=== PATIENT | male | born 1980 | race Two or more races ===

== ENCOUNTER 2016-12-24 00:37 | Emergency (ER) | payer OTHER ==
[2016-12-24 02:22] VITALS: BP 134/85; PULSE 82; TEMP 98; BMI 21.2
[2016-12-24] MEDS ORDERED: KETOROLAC TROMETHAMINE 60 MG/2 ML VIAL IM ONE (03:20)
--- NOTE | 2016-12-24 03:20 | PDOC ---
History of Present Illness - General History Source: Patient Exam Limitations: No Limitations - History of Present Illness Initial Comments: CHIEF COMPLAINT: 36 y/o afebrile male with no significant PMH c/o left knee pain s/p fall. HISTORY OF PRESENT ILLNESS: The patient states he was walking tonight when his left knee locked and he fell. He then couldn't walk because he had a lot of pain in his left knee. Vital signs on arrival are within normal limits. REVIEW OF SYSTEMS: GENERAL/CONSTITUTIONAL: No fever/chills. No weakness. No weight change. HEAD, EYES, EARS, NOSE AND THROAT: No change in vision. No ear pain or discharge. No sore throat. MUSCULOSKELETAL: +left knee pain. No neck or back pain. SKIN: No rash or easy bruising. NEUROLOGIC: No headache, vertigo, loss of consciousness, or loss of sensation. PHYSICAL EXAM: VITAL_SIGNS: within normal limits GENERAL_APPEARANCE: alert, cooperative, mild obvious discomfort. MENTAL_STATUS: speech clear, oriented X 3, responds appropriately to questions. NEURO: motor intact and sensory intact in injured extremity. EXTREMITIES: good pulse in injured extremity. No swelling to affected knee. Pain with flexion and extension of left knee. TTP of both medial and lateral joint lines worse on medial side. SKIN: warm, dry, good color. <Maribel Allen - Last Filed: 12/24/16 06:30> <Nilesh Hardin - Last Filed: 12/24/16 07:00> - General Chief Complaint: Pain, Acute Stated Complaint: LEFT KNEE PAIN Time Seen by Provider: 12/24/16 02:50 Past History - Past Medical History Asthma: Yes HTN: Yes HIV: Yes - Immunization History Td Vaccination: No Immunization Up to Date: Yes - Psycho/Social/Smoking Cessation Hx Anxiety: No Suicidal Ideation: No Smoking Status: Yes Smoking History: Current every day smoker Have you smoked in the past 12 months: Yes Number of Cigarettes Smoked Daily: 20 Cigars Per Day: 8 Information on smoking cessation initiated: No Hx Alcohol Use: No Drug/Substance Use Hx: No Substance Use Type: None Hx Substance Use Treatment: No <Maribel Allen - Last Filed: 12/24/16 06:30> <Nilesh Hardin - Last Filed: 12/24/16 07:00> - Past Medical History Allergies/Adverse Reactions: Allergies Allergy/AdvReac Type Severity Reaction Status Date / Time No Known Allergies Allergy Verified 12/24/16 02:19 Home Medications: Ambulatory Orders Montelukast Na [Singulair -] 10 mg PO HS 06/10/16 Naproxen [Naprosyn -] 500 mg PO BID 06/10/16 Sumatriptan Succinate [Imitrex] 50 mg PO DAILY 06/10/16 Zolpidem Tartrate [Ambien] 10 mg PO HS 06/10/16 *Physical Exam - Vital Signs Last Vital Signs Temp Pulse Resp BP Pulse Ox 98.0 F 82 14 134/85 100 12/24/16 02:19 12/24/16 02:19 12/24/16 02:19 12/24/16 02:19 12/24/16 02:19 <Maribel Allen - Last Filed: 12/24/16 06:30> - Vital Signs Last Vital Signs Temp Pulse Resp BP Pulse Ox 98.0 F 82 14 134/85 100 12/24/16 02:19 12/24/16 02:19 12/24/16 02:19 12/24/16 02:19 12/24/16 02:19 <Nilesh Hardin - Last Filed: 12/24/16 07:00> ED Treatment Course - Medications Given in the ED: ED Medications Discontinued Medications Generic Name Dose Route Start Last Admin Trade Name Freq PRN Reason Stop Dose Admin Ketorolac Tromethamine 60 mg 12/24/16 03:20 12/24/16 03:25 Toradol Injection - IM 12/24/16 03:21 60 mg ONCE ONE Administration <Nilesh Hardin - Last Filed: 12/24/16 07:00> Medical Decision Making - Medical Decision Making A/P: 36 y/o male with most likely soft tissue injury to left knee. Plan is as follows: 1. xray left knee 2. IM toradol 3. CARRI 4. Crutches/knee immobilizer Xray left knee IMPRESSION: (wet read) No fracture Gave patient the results. Applied CARRI bandage, knee immobilizer and crutches. Suggested RICE instructions and motrin. Instructed him to f/u with Dr. Ryan as soon as possible. The patient verbalizes understanding of all instructions, has no further questions and is awaiting discharge. <Maribel Allen - Last Filed: 12/24/16 06:30> - Medical Decision Making 12/24/16 07:00 ED ATTENDING NOTE: I was available for consultation and review of the case and plan as needed. <Nilesh Hardin - Last Filed: 12/24/16 07:00> *DC/Admit/Observation/Transfer <Maribel Allen - Last Filed: 12/24/16 06:30> <Nilesh Hardin - Last Filed: 12/24/16 07:00> Diagnosis at time of Disposition: Knee pain, left - Discharge Dispostion Disposition: HOME Condition at time of disposition: Good - Referrals Referrals: Zari Wang MD [Primary Care Provider] - Deonte Ryan MD [Staff Physician] - - Patient Instructions Printed Discharge Instructions: DI for Knee Pain, How To Perform RICE (Rest, Ice, Compress, Elevate), How to Use Crutches Additional Instructions: Discharge Instructions: -Take 600mg of over the counter Ibuprofen for pain every 6 hours with food -Follow up with the referred Orthopedic doctor as soon as possible -Follow RICE instructions -Return to the ER with any worsening or concerning symptoms - Post Discharge Activity Work/School Note: Back to Work
[2016-12-24] MEDS ORDERED: KETOROLAC TROMETHAMINE 60 MG/2 ML VIAL ONE (03:26)
== END 2016-12-24 06:42 | disposition home or self-care (01) ==
LOC: JER 00:37
PROC: 3E0233Z Introduction of Anti-inflammatory into Muscle, Percutaneous Approach (ICD-10-PCS; principal; 2016-12-24)
DX: M25.562 Pain in left knee (principal); W18.39XA Other fall on same level, initial encounter; Y93.01 Activity, walking, marching and hiking; Y92.038 Other place in apartment as the place of occurrence of the external cause; I10 Essential (primary) hypertension; J45.909 Unspecified asthma, uncomplicated; Z21 Asymptomatic human immunodeficiency virus [HIV] infection status
CPT/HCPCS: 73562-TC-LT; 96372; 99282-25

== ENCOUNTER 2017-09-01 17:01 | Emergency (ER) | payer OTHER ==
[2017-09-01 17:11] VITALS: BP 135/74; PULSE 68; TEMP 98.1; BMI 24.3
--- NOTE | 2017-09-01 17:11 | PDOC ---
Rapid Medical Evaluation Medical Evaluation: Allergies Allergy/AdvReac Type Severity Reaction Status Date / Time No Known Allergies Allergy Verified 09/01/17 17:08 09/01/17 17:08 I have performed a brief in person evaluation of this patient. The patient presents with chief complaint of : dropped a piece of concrete on right foot 1hr ago. PMHX asthma, migraines. Pertinent PE findings: right foot dorsal surface skin intact no redness or swelling I have ordered the following: xray right foot The patient will proceed to the ER for further evaluation.
[2017-09-01] MEDS ORDERED: IBUPROFEN 600 MG TABLET (FP) PO ONE ×2 (18:02→18:17)
--- NOTE | 2017-09-01 19:13 | PDOC ---
History of Present Illness - General History Source: Patient Exam Limitations: No Limitations - History of Present Illness Initial Comments: 09/01/17 19:14 The patient is a 37 year old male with significant PMH of asthma and smoker who presents to the emergency department complaining of right foot pain after a concrete slab fell on his foot today. The patient reports he was wearing steel toe work boots. The patient is currently in a wheelchair due to pain while walking. Since the foot x-ray came back negative, the patient will be given a surgical shoe. Allergies: NKA Past surgical history: None reported. Social history: Current smoker. No reported alcohol or drug use. PCP: Dr. Wang <Esha Ramirez - Last Filed: 09/01/17 19:36> - General History Source: Patient Exam Limitations: No Limitations <Sarah Gu - Last Filed: 09/01/17 20:08> - General Chief Complaint: Injury Stated Complaint: INJURY Time Seen by Provider: 09/01/17 19:01 Past History <Esha Ramirez - Last Filed: 09/01/17 19:36> - Past Medical History Asthma: Yes COPD: No HTN: Yes Other medical history: MIGRANES - Immunization History Td Vaccination: No Immunization Up to Date: Yes - Suicide/Smoking/Psychosocial Hx Smoking Status: Yes Smoking History: Current some day smoker Have you smoked in the past 12 months: Yes Number of Cigarettes Smoked Daily: 20 Cigars Per Day: 8 Information on smoking cessation initiated: No Hx Alcohol Use: No Drug/Substance Use Hx: No Substance Use Type: None Hx Substance Use Treatment: No <Sarah Gu - Last Filed: 09/01/17 20:08> - Past Medical History Allergies/Adverse Reactions: Allergies Allergy/AdvReac Type Severity Reaction Status Date / Time No Known Allergies Allergy Verified 09/01/17 17:08 Home Medications: Ambulatory Orders Oxycodone HCl/Acetaminophen [Percocet 5-325 mg Tablet] 1 tab PO Q6H #12 tablet MDD 4 09/01/17 Review of Systems - Review of Systems Able to Perform ROS?: Yes Comments:: 09/01/17 19:31 GENERAL/CONSTITUTIONAL: No fever or chills. No weakness. HEAD, EYES, EARS, NOSE AND THROAT: No change in vision. No ear pain or discharge. No sore throat. CARDIOVASCULAR: No chest pain or shortness of breath. RESPIRATORY: No cough, wheezing, or hemoptysis. GASTROINTESTINAL: No nausea, vomiting, diarrhea or constipation. GENITOURINARY: No dysuria, frequency, or change in urination. MUSCULOSKELETAL: (+) Right foot pain. No neck or back pain. SKIN: No rash NEUROLOGIC: No headache, vertigo, loss of consciousness, or change in strength/ sensation. ENDOCRINE: No increased thirst. No abnormal weight change. HEMATOLOGIC/LYMPHATIC: No anemia, easy bleeding, or history of blood clots. ALLERGIC/IMMUNOLOGIC: No hives or skin allergy. <Esha Ramirez - Last Filed: 09/01/17 19:36> *Physical Exam - Vital Signs Last Vital Signs Temp Pulse Resp BP Pulse Ox 98.1 F 68 17 135/74 100 09/01/17 17:08 09/01/17 17:08 09/01/17 17:08 09/01/17 17:08 09/01/17 17:08 - Physical Exam Comments: 09/01/17 19:32 GENERAL: Awake, alert, and fully oriented, in no acute distress HEAD: No signs of trauma EYES: PERRLA, EOMI, sclera anicteric, conjunctiva clear ENT: Auricles normal inspection, hearing grossly normal, nares patent, oropharynx clear without exudates. Moist mucosa NECK: Normal ROM, supple, no lymphadenopathy, JVD, or masses LUNGS: Breath sounds equal, clear to auscultation bilaterally. No wheezes, and no crackles HEART: Regular rate and rhythm, normal S1 and S2, no murmurs, rubs or gallops ABDOMEN: Soft, nontender, normoactive bowel sounds. No guarding, no rebound. No masses EXTREMITIES: (+) Mild swelling to the dorsum. Normal range of motion. No clubbing or cyanosis. No cords or erythema. NEUROLOGICAL: Cranial nerves II through XII grossly intact. Normal speech, normal gait SKIN: Warm, Dry, normal turgor, no rashes or lesions noted. <Esha Ramirez - Last Filed: 09/01/17 19:36> - Vital Signs Last Vital Signs Temp Pulse Resp BP Pulse Ox 98.1 F 68 17 135/74 100 09/01/17 17:08 09/01/17 17:08 09/01/17 17:08 09/01/17 17:08 09/01/17 17:08 <Sarah Gu - Last Filed: 09/01/17 20:08> ED Treatment Course - Medications Given in the ED: ED Medications Discontinued Medications Generic Name Dose Route Start Last Admin Trade Name Freq PRN Reason Stop Dose Admin Ibuprofen 600 mg 09/01/17 18:02 09/01/17 18:19 Motrin - PO 09/01/17 18:03 600 mg ONCE ONE Administration <Esha Ramirez - Last Filed: 09/01/17 19:36> - Medications Given in the ED: ED Medications Discontinued Medications Generic Name Dose Route Start Last Admin Trade Name Freq PRN Reason Stop Dose Admin Ibuprofen 600 mg 09/01/17 18:02 09/01/17 18:19 Motrin - PO 09/01/17 18:03 600 mg ONCE ONE Administration <Sarah Gu - Last Filed: 09/01/17 20:08> Medical Decision Making - Medical Decision Making 09/01/17 20:07 A/P: Patient with crush injury to right foot x-rays negative for acute fracture dislocation there is no erythema , mild edema and no deformity. Bong wrap and surgical shoe placed on, Motrin for pain, strict follow-up with orthopedics in one week if pain persists. Ice and elevate when at rest. I discussed the physical exam findings, ancillary test results and final diagnoses with the patient. I answered all of the patient's questions. The patient was satisfied with the care received and felt comfortable with the discharge plan and treatment plan. The patient will call to arrange follow-up and will return to the Emergency Department with any new, persistent or worsening symptoms. <Sarah Gu - Last Filed: 09/01/17 20:08> *DC/Admit/Observation/Transfer - Attestations Scribe Attestion: 09/01/17 19:34 Documentation prepared by Esha Ramirez, acting as emergency medicine medical director for Sarah Gu NP. <Esha Ramirez - Last Filed: 09/01/17 19:36> - Discharge Dispostion Admit: No <Sarah Gu - Last Filed: 09/01/17 20:08> Diagnosis at time of Disposition: Crush injury Foot pain Qualifiers: Laterality: right Qualified Code(s): M79.671 - Pain in right foot - Discharge Dispostion Disposition: HOME Condition at time of disposition: Good - Prescriptions Prescriptions: Oxycodone HCl/Acetaminophen [Percocet 5-325 mg Tablet] 1 tab PO Q6H #12 tablet MDD 4 - Referrals Referrals: Zari Wang MD [Primary Care Provider] - Deonte Ryan MD [Staff Physician] - - Patient Instructions Additional Instructions: 1. Please return to the emergency department with any redness, swelling, increased pain, or any other concerns. 2. Keep splint on. 3. Please follow up in the office of Dr. Ryan within a week if pain persists. 4. No weightbearing 5. Ice and elevate when at rest. 6. Motrin for pain - Post Discharge Activity
== END 2017-09-01 19:25 | disposition home or self-care (01) ==
LOC: JERFT 17:01
PROC: 2W3QX1Z Immobilization of Right Lower Leg using Splint (ICD-10-PCS; principal; 2017-09-01)
DX: M79.671 Pain in right foot (principal); W23.1XXA Caught, crushed, jammed, or pinched between stationary objects, initial encounter; Y93.89 Activity, other specified; Y92.9 Unspecified place or not applicable; Y99.0 Civilian activity done for income or pay
CPT/HCPCS: 29515; 73630-TC-RT; 99281-25

== ENCOUNTER 2017-11-18 02:51 | Emergency (ER) | payer OTHER ==
[2017-11-18 03:13] VITALS: TEMP 98; BMI 23.5
--- NOTE | 2017-11-18 03:33 | PDOC ---
History of Present Illness - General History Source: Patient Exam Limitations: No Limitations - History of Present Illness Initial Comments: 11/18/17 05:41 Patient is a 37 year old male with a significant past medical history of Asthma who presents to the ED with complaints of increased head pain that began this morning while at home. 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 He reports current head pain does not feel like recurrent past migraines as the head pain, isn't affecting his vision. Patient reports experiencing intermittent dizziness and associated nausea while at work, stating when i sit down or stand up, i instantly feel more dizzy like if i'm going to vomit. He reports experiencing similar symptoms like this before but states he usually takes motrin and goes to sleep to relieve it. Denies chest pain, Sob. Denies vomiting, coughing. Denies contact with sick individuals, out of state traveling. Denies trauma to affected area. Denies any other symptoms. Allergies: None Social history: Current social smoker. No alcohol. Former illicit drug user. Surgical history: None PMD: Dr. Castro <Raf Morse - Last Filed: 11/18/17 05:41> <Cidna Fortune - Last Filed: 11/18/17 06:41> <Nathan Malik - Last Filed: 11/18/17 09:50> - General Chief Complaint: Lightheaded Stated Complaint: DIZZINESS Time Seen by Provider: 11/18/17 03:33 Past History <Raf Morse - Last Filed: 11/18/17 05:41> - Past Medical History Asthma: Yes COPD: No HTN: Yes - Immunization History Td Vaccination: No Immunization Up to Date: Yes - Suicide/Smoking/Psychosocial Hx Smoking Status: Yes Smoking History: Current some day smoker Have you smoked in the past 12 months: Yes Number of Cigarettes Smoked Daily: 20 Cigars Per Day: 8 Information on smoking cessation initiated: No Hx Alcohol Use: No Drug/Substance Use Hx: No Substance Use Type: None Hx Substance Use Treatment: No <Cinda Fortune - Last Filed: 11/18/17 06:41> <Nathan Malik - Last Filed: 11/18/17 09:50> - Past Medical History Allergies/Adverse Reactions: Allergies Allergy/AdvReac Type Severity Reaction Status Date / Time No Known Allergies Allergy Verified 11/18/17 03:07 Home Medications: Ambulatory Orders Oxycodone HCl/Acetaminophen [Percocet 5-325 mg Tablet] 1 tab PO Q6H #12 tablet MDD 4 09/01/17 Review of Systems - Review of Systems Able to Perform ROS?: Yes Comments:: 11/18/17 05:41 GENERAL/CONSTITUTIONAL: No fever or chills. No weakness. HEAD, EYES, EARS, NOSE AND THROAT: No change in vision. No ear pain or discharge. No sore throat. GASTROINTESTINAL: No nausea, vomiting, diarrhea or constipation. GENITOURINARY: No dysuria, frequency, or change in urination. CARDIOVASCULAR: No chest pain or shortness of breath. RESPIRATORY: No cough, wheezing, or hemoptysis. MUSCULOSKELETAL: No joint or muscle swelling or pain. No neck or back pain. SKIN: No rash NEUROLOGIC: +Headache. No vertigo, loss of consciousness, or change in strength/sensation. ENDOCRINE: No increased thirst. No abnormal weight change. HEMATOLOGIC/LYMPHATIC: No anemia, easy bleeding, or history of blood clots. ALLERGIC/IMMUNOLOGIC: No hives or skin allergy. All Other Systems: Reviewed and Negative <Raf Morse - Last Filed: 11/18/17 05:41> *Physical Exam - Vital Signs Last Vital Signs Temp Pulse Resp BP Pulse Ox 98.0 F 65 14 135/84 98 11/18/17 03:07 11/18/17 03:07 11/18/17 03:07 11/18/17 03:07 11/18/17 03:07 - Physical Exam Comments: 11/18/17 05:42 GENERAL: +Alert and interactive. Awake, and fully oriented, in no acute distress HEAD: No signs of trauma EYES: PERRLA, EOMI, sclera anicteric, conjunctiva clear ENT: Auricles normal inspection, hearing grossly normal, nares patent, oropharynx clear without exudates. Moist mucosa NECK: Normal ROM, supple, no lymphadenopathy, JVD, or masses LUNGS: Breath sounds equal, clear to auscultation bilaterally. No wheezes, and no crackles HEART: Regular rate and rhythm, normal S1 and S2, no murmurs, rubs or gallops ABDOMEN: Soft, nontender, normoactive bowel sounds. No guarding, no rebound. No masses EXTREMITIES: Normal range of motion, no edema. No clubbing or cyanosis. No cords, erythema, or tenderness. NEUROLOGICAL: +Steady gait. Negative romberg sign. Normal finger to nose. Strength 5/5 x4 , Sensation grossly intact Cranial nerves II through XII grossly intact. Normal speech, SKIN: Warm, Dry, normal turgor, no rashes or lesions noted. <Raf Morse - Last Filed: 11/18/17 05:41> - Vital Signs Last Vital Signs Temp Pulse Resp BP Pulse Ox 98.0 F 65 14 135/84 98 11/18/17 03:07 11/18/17 03:07 11/18/17 03:07 11/18/17 03:07 11/18/17 03:07 <Cinda Fortune - Last Filed: 11/18/17 06:41> - Vital Signs Last Vital Signs Temp Pulse Resp BP Pulse Ox 98.0 F 65 14 135/84 98 11/18/17 03:07 11/18/17 03:07 11/18/17 03:07 11/18/17 03:07 11/18/17 03:07 <Nathan Malik - Last Filed: 11/18/17 09:50> ED Treatment Course - LABORATORY CBC & Chemistry Diagram: 11/18/17 04:30 11/18/17 04:30 - ADDITIONAL ORDERS Additional order review: Laboratory Results 11/18/17 11/18/17 04:45 04:30 Sodium 139 Potassium 4.0 Chloride 101 Carbon Dioxide 30 Anion Gap 8 BUN 13 Creatinine 0.9 Creat Clearance w eGFR > 60 Random Glucose 108 H Calcium 8.6 Total Bilirubin 0.2 AST 17 ALT 22 Alkaline Phosphatase 74 Creatine Kinase 76 Troponin I < 0.02 Total Protein 7.7 Albumin 3.4 Opiates Screen Negative Methadone Screen Negative Barbiturate Screen Negative Phencyclidine Screen Negative Ur Amphetamines Screen Negative MDMA (Ecstasy) Screen Negative Benzodiazepines Screen Negative Cocaine Screen Negative U Marijuana (THC) Screen Negative 11/18/17 04:30 RBC 4.58 MCV 93.9 MCHC 34.2 RDW 13.4 MPV 7.2 L Neutrophils % 73.5 Lymphocytes % 17.3 Monocytes % 6.5 Eosinophils % 1.7 Basophils % 1.0 <Raf Morse - Last Filed: 11/18/17 05:41> - LABORATORY CBC & Chemistry Diagram: 11/18/17 04:30 11/18/17 04:30 <Cinda Fortune - Last Filed: 11/18/17 06:41> - LABORATORY CBC & Chemistry Diagram: 11/18/17 04:30 11/18/17 04:30 - ADDITIONAL ORDERS Additional order review: Laboratory Results 11/18/17 11/18/17 04:45 04:30 Sodium 139 Potassium 4.0 Chloride 101 Carbon Dioxide 30 Anion Gap 8 BUN 13 Creatinine 0.9 Creat Clearance w eGFR > 60 Random Glucose 108 H Calcium 8.6 Total Bilirubin 0.2 AST 17 ALT 22 Alkaline Phosphatase 74 Creatine Kinase 76 Troponin I < 0.02 Total Protein 7.7 Albumin 3.4 Opiates Screen Negative Methadone Screen Negative Barbiturate Screen Negative Phencyclidine Screen Negative Ur Amphetamines Screen Negative MDMA (Ecstasy) Screen Negative Benzodiazepines Screen Negative Cocaine Screen Negative U Marijuana (THC) Screen Negative 11/18/17 04:30 RBC 4.58 MCV 93.9 MCHC 34.2 RDW 13.4 MPV 7.2 L Neutrophils % 73.5 Lymphocytes % 17.3 Monocytes % 6.5 Eosinophils % 1.7 Basophils % 1.0 <Nathan Malik - Last Filed: 11/18/17 09:50> Medical Decision Making - Medical Decision Making 11/18/17 06:30 Pt seen and examined - likely migraine, also with a small amount of dizziness. No ataxia, is oriented and well appearing, normal neuro exam. Plan was to give him reglan, benadryl, IVF and reassess. However, soon after, pt seems to have eloped from the ER. AOx3, GCS 15 in the ER. Overall, he was quite well appearing. Did not have IV in place. <Cinda Fortune - Last Filed: 11/18/17 06:41> *DC/Admit/Observation/Transfer - Attestations Scribe Attestion: 11/18/17 05:43 Documentation prepared by Raf Morse, acting as remote medical coder for Cinda Fortune DO, MD/. <Raf Morse - Last Filed: 11/18/17 05:41> <Cinda Fortune - Last Filed: 11/18/17 06:41> <Nathan Malik - Last Filed: 11/18/17 09:50> Diagnosis at time of Disposition: Dizziness - Discharge Dispostion Disposition: ELOPED Condition at time of disposition: Stable - Referrals Referrals: Zari Wang MD [Primary Care Provider] - - Patient Instructions - Post Discharge Activity
[2017-11-18 04:39] LABS: EOS % 1.7 % (0-4.5); HEMOGLOBIN 14.7 GM/dL (11.7-16.9); LYMPH % 17.3 % (8-40); MCH 32.1 pg (25.7-33.7); MCHC 34.2 g/dl (32.0-35.9); MEAN CELL VOLUME 93.9 fl (80-96); MEAN PLT VOLUME 7.2 fl (7.5-11.1); MONO % 6.5 % (3.8-10.2); NEUT % 73.5 % (42.8-82.8); PLATELET COUNT 222 K/MM3 (134-434); RBC 4.58 M/mm3 (4.00-5.60); RDW 13.4 % (11.9-15.9); WHITE BLOOD COUNT 13.4 K/mm3 (4.0-10.0)
[2017-11-18 05:02] LABS: ALBUMIN 3.4 g/dl (3.4-5.0); ANION GAP 8 (8-16); BILIRUBIN,TOTAL 0.2 mg/dL (0.2-1.0); BLOOD UREA NITROGEN 13 mg/dL (7-18); CALCIUM 8.6 mg/dL (8.5-10.1); CHLORIDE 101 mmol/L (98-107); CO2 30 mmol/L (21-32); CREATININE 0.9 mg/dL (0.7-1.3); GLUCOSE,RANDOM 108 mg/dL (74-106); SGOT/AST 17 U/L (15-37); SGPT/ALT 22 U/L (12-78); SODIUM 139 mmol/L (136-145); TOT PROT 7.7 g/dl (6.4-8.2)
[2017-11-18 05:04] LABS: ALK PHOS 74 U/L (45-117)
[2017-11-18 05:23] LABS: COCAINE, UR NEGATIVE ng/ml (CUTOFF=300); METHADONE, UR NEGATIVE ng/ml (CUTOFF=300); OPIATES, URI NEGATIVE ng/ml (CUTOFF=300); PHENCYCLIDINE,URINE NEGATIVE ng/ml (CUTOFF=25); URINE AMPHETAMINES NEGATIVE ng/ml (CUTOFF=500); URINE BARBITURATES NEGATIVE ng/ml (CUTOFF=200); URINE BENZODIAZEPINES NEGATIVE ng/ml (CUTOFF=200)
[2017-11-18] MEDS ORDERED: METOCLOPRAMIDE HCL 10 MG TABLET (FP) PO ONE ×2 (10:17→13:32)
[2017-11-18] MEDS ORDERED: SODIUM CHLORIDE 1,000 ML IV STA (10:17)
[2017-11-18] MEDS ORDERED: morphine CARPU-JECT 2 MG/1 ML DISP.SYRIN IVPUSH ONE (10:19)
--- NOTE | 2017-11-18 12:50 | PDOC ---
*Physical Exam - Vital Signs Last Vital Signs Temp Pulse Resp BP Pulse Ox 98.0 F 65 14 135/84 98 11/18/17 03:07 11/18/17 03:07 11/18/17 03:07 11/18/17 03:07 11/18/17 03:07 ED Treatment Course - LABORATORY CBC & Chemistry Diagram: 11/18/17 04:30 11/18/17 04:30 - ADDITIONAL ORDERS Additional order review: Laboratory Results 11/18/17 11/18/17 11/18/17 10:50 04:45 04:30 Sodium 139 Potassium 4.0 Chloride 101 Carbon Dioxide 30 Anion Gap 8 BUN 13 Creatinine 0.9 Creat Clearance w eGFR > 60 Random Glucose 108 H Lactic Acid 0.6 Calcium 8.6 Total Bilirubin 0.2 AST 17 ALT 22 Alkaline Phosphatase 74 Creatine Kinase 76 Troponin I < 0.02 Total Protein 7.7 Albumin 3.4 Opiates Screen Negative Methadone Screen Negative Barbiturate Screen Negative Phencyclidine Screen Negative Ur Amphetamines Screen Negative MDMA (Ecstasy) Screen Negative Benzodiazepines Screen Negative Cocaine Screen Negative U Marijuana (THC) Screen Negative 11/18/17 04:30 RBC 4.58 MCV 93.9 MCHC 34.2 RDW 13.4 MPV 7.2 L Neutrophils % 73.5 Lymphocytes % 17.3 Monocytes % 6.5 Eosinophils % 1.7 Basophils % 1.0 - RADIOLOGY Radiology Studies Ordered: Category Date Time Status ABDOMEN & PELVIS CT WITH CONTR [CT] Stat CT Scan 11/18/17 10:18 Completed Medical Decision Making - Medical Decision Making 11/18/17 12:[address] was negative. Lactate negative. Will reassess and dispo. 11/18/17 13:16 Given sumatriptan prescription for recurring headache. and neurology referral. *DC/Admit/Observation/Transfer Diagnosis at time of Disposition: Dizziness, Headache - Discharge Dispostion Disposition: HOME Condition at time of disposition: Stable Admit: No - Prescriptions Prescriptions: Sumatriptan Succ/Naproxen Sod [Treximet 85-500 mg Tablet] 1 each PO DAILY PRN # 20 tablet MDD 200mg PRN Reason: Headache - Referrals Referrals: Zari Wang MD [Primary Care Provider] - Cale Kee MD [Staff Physician] - - Patient Instructions Printed Discharge Instructions: Migraine -- Adult Additional Instructions: Come back to the ER for any new, worsening or concerning symptoms. Follow up with Dr. Domingo within the next 2-3 days. - Post Discharge Activity
[2017-11-18] MEDS ORDERED: SUMAtriptan SUCCINATE 50 MG TABLET PO SCH (13:15)
[2017-11-18] MEDS ORDERED: MORPHINE SULFATE 10 MG/1 ML *VIAL ONE (13:32)
--- NOTE | 2017-11-18 14:02 | PDOC ---
*Physical Exam - Vital Signs Last Vital Signs Temp Pulse Resp BP Pulse Ox 98.0 F 65 14 135/84 98 11/18/17 03:07 11/18/17 03:07 11/18/17 03:07 11/18/17 03:07 11/18/17 03:07 ED Treatment Course - LABORATORY CBC & Chemistry Diagram: 11/18/17 04:30 11/18/17 04:30 - ADDITIONAL ORDERS Additional order review: Laboratory Results 11/18/17 11/18/17 11/18/17 10:50 04:45 04:30 Sodium 139 Potassium 4.0 Chloride 101 Carbon Dioxide 30 Anion Gap 8 BUN 13 Creatinine 0.9 Creat Clearance w eGFR > 60 Random Glucose 108 H Lactic Acid 0.6 Calcium 8.6 Total Bilirubin 0.2 AST 17 ALT 22 Alkaline Phosphatase 74 Creatine Kinase 76 Troponin I < 0.02 Total Protein 7.7 Albumin 3.4 Opiates Screen Negative Methadone Screen Negative Barbiturate Screen Negative Phencyclidine Screen Negative Ur Amphetamines Screen Negative MDMA (Ecstasy) Screen Negative Benzodiazepines Screen Negative Cocaine Screen Negative U Marijuana (THC) Screen Negative 11/18/17 04:30 RBC 4.58 MCV 93.9 MCHC 34.2 RDW 13.4 MPV 7.2 L Neutrophils % 73.5 Lymphocytes % 17.3 Monocytes % 6.5 Eosinophils % 1.7 Basophils % 1.0 - Medications Given in the ED: ED Medications Discontinued Medications Generic Name Dose Route Start Last Admin Trade Name Freq PRN Reason Stop Dose Admin Sodium Chloride 1,000 mls @ 1,000 mls/hr 11/18/17 10:17 11/18/17 13:29 Normal Saline - IV 11/18/17 11:16 1,000 mls/hr ASDIR STA Administration Metoclopramide HCl 10 mg 11/18/17 10:17 11/18/17 13:33 Reglan - PO 11/18/17 10:18 10 mg ONCE ONE Administration Morphine Sulfate 2 mg 11/18/17 10:19 11/18/17 13:33 Morphine Injection - IVPUSH 11/18/17 10:20 2 mg ONCE ONE Administration Medical Decision Making - Medical Decision Making 11/18/17 13:57 Mr Roth was seen overnight. He was thought to have eloped. He was found in the holding area. Mr Roth is a 37 yo M with a history of complicated migraines who came in last night due to headache and vertigo (pt states that when he has a headache, it can often last for 1 week, he can have visual changes) Pt was at work, states that his head was hurting No neck pain No head trauma No nausea or vomiting Pt also noted left groin pain Pt was seen last night initially On examination Pt is comfortable appearing No nuchal rigidity RRR CTA Left groin tenderness, no swelling, no hernia palpated 11/18/17 14:01 Pt given Pain medications Had a reaction to morphine - dizziness Will attempt giving abortive medication Will discharge to home with Neurology follow up 11/21/17 01:29 *DC/Admit/Observation/Transfer Diagnosis at time of Disposition: Dizziness, Headache - Discharge Dispostion Disposition: HOME Condition at time of disposition: Stable - Prescriptions Prescriptions: Sumatriptan Succ/Naproxen Sod [Treximet 85-500 mg Tablet] 1 each PO DAILY PRN # 20 tablet MDD 200mg PRN Reason: Headache - Referrals Referrals: Cale Kee MD [Staff Physician] - Zari Wang MD [Primary Care Provider] - - Patient Instructions Printed Discharge Instructions: Migraine -- Adult Additional Instructions: Come back to the ER for any new, worsening or concerning symptoms. Follow up with Dr. Domingo within the next 2-3 days. - Post Discharge Activity
[2017-11-18 15:44] VITALS: BP 122/75; PULSE 81
== END 2017-11-18 15:44 | disposition home or self-care (01) ==
LOC: JER 02:51
PROC: 3E0337Z Introduction of Electrolytic and Water Balance Substance into Peripheral Vein, Percutaneous Approach (ICD-10-PCS; principal; 2017-11-18)
PROC: 3E033NZ Introduction of Analgesics, Hypnotics, Sedatives into Peripheral Vein, Percutaneous Approach (ICD-10-PCS; 2017-11-18)
DX: G43.909 Migraine, unspecified, not intractable, without status migrainosus (principal); J45.909 Unspecified asthma, uncomplicated; I10 Essential (primary) hypertension; F17.210 Nicotine dependence, cigarettes, uncomplicated
CPT/HCPCS: 36415; 74177-TC; 80053; 80307; 82550; 83605; 84484; 85025; 96361; 96374; 99283-25

== ENCOUNTER 2017-11-20 11:46 | Emergency (ER) | payer OTHER ==
[2017-11-20 11:59] VITALS: BP 125/74; PULSE 64; TEMP 97.7; BMI 23.4
--- NOTE | 2017-11-20 12:40 | PDOC ---
Attending Attestation - Resident Resident Name: Jonathan Lr - HPI HPI: 11/20/17 14:07 Pt presents to the ED after sent in by primary care physician for chest pain with abnormal EKG with possible a flutter. EKG from PMD's office shows NSR with no signs of ischemia. Patient reports a long standing history of chronic chest pain that is usually worse when he is lifting heavy boxes at work. Reports that there was a difference in the character of his chest pain--it now feels more like needles and usually feels like pressure. Pain has been constant for >12 hours. It is non exertional. 11/20/17 14:26 - Physicial Exam PE: 11/20/17 14:27 Agree with resident exam. Patient is well appearing. Heart has regular rate and rhythm. Lungs are clear. - Medical Decision Making 11/20/17 14:28 Pt presents to the ED complaining of atypical chest pain that appears to be chronic. EKG is normal. Father had PR in his 30's. Denies other associated symptoms. I have discussed the patient with his PMD and she is requesting more urgent cardiology follow up than she is able to obtain from Dr. Ambrose. Will give patient referral to Dr. Browning and discharge home.
--- NOTE | 2017-11-20 13:20 | PDOC ---
History of Present Illness - General Chief Complaint: Chest Pain Stated Complaint: REVISIT, CHEST PAIN Time Seen by Provider: 11/20/17 12:20 History Source: Patient Exam Limitations: No Limitations - History of Present Illness Initial Comments: 11/20/17 12:47 The patient is a 37M with a PMH of asthma and migraines who presents from his PCP's office for an abnormal EKG. The patient states that he's had chronic migraines, chest pain, and LLQ pain. He states that his CP is typical to the one he's had in the past. He describes it as intermittent, sharp "needle-like", chest pain located retrosternally and does not radiate, without any exacerbating or alleviating factors. He denies any fever, chills, SOB, vomiting , abdominal pain, numbness, tingling, or weakness. Past History - Past Medical History Allergies/Adverse Reactions: Allergies Allergy/AdvReac Type Severity Reaction Status Date / Time No Known Allergies Allergy Verified 11/20/17 11:54 Home Medications: Ambulatory Orders Oxycodone HCl/Acetaminophen [Percocet 5-325 mg Tablet] 1 tab PO Q6H #12 tablet MDD 4 09/01/17 Sumatriptan Succ/Naproxen Sod [Treximet 85-500 mg Tablet] 1 each PO DAILY PRN # 20 tablet MDD 200mg 11/18/17 Anemia: No Asthma: Yes Cancer: No Cardiac Disorders: No CVA: No COPD: No DVT: No Dementia: No Diabetes: No Dialysis: No GI Disorders: No Disorders: No HTN: Yes Hypercholesterolemia: No Kidney Stones: No Liver Disease: No Psychiatric Problems: No Seizures: No Thyroid Disease: No Lung CA: No - Immunization History Td Vaccination: No Immunization Up to Date: Yes - Suicide/Smoking/Psychosocial Hx Smoking Status: Yes Smoking History: Current some day smoker Have you smoked in the past 12 months: Yes Number of Cigarettes Smoked Daily: 20 Cigars Per Day: 8 Information on smoking cessation initiated: No Hx Alcohol Use: No Drug/Substance Use Hx: No Substance Use Type: None Hx Substance Use Treatment: No Review of Systems - Review of Systems Able to Perform ROS?: Yes Comments:: 11/20/17 13:31 GENERAL/CONSTITUTIONAL: No fever or chills. No weakness. HEAD, EYES, EARS, NOSE AND THROAT: No change in vision. No ear pain or discharge. No sore throat. CARDIOVASCULAR: Positive for chronic chest pain. No palpitations, or lightheadedness. RESPIRATORY: No cough, wheezing, shortness of breath, or hemoptysis. GASTROINTESTINAL: No nausea, vomiting, diarrhea, constipation, or abdominal pain. GENITOURINARY: No dysuria, frequency, hematuria, or change in urination. MUSCULOSKELETAL: No joint or muscle swelling or pain. No neck or back pain. SKIN: No rash or lesions. NEUROLOGIC: Positive for migraines. No numbness, tingling, weakness, loss of consciousness, or change in strength/sensation. ENDOCRINE: No increased thirst. No abnormal weight change. HEMATOLOGIC/LYMPHATIC: No anemia, easy bleeding, or history of blood clots. ALLERGIC/IMMUNOLOGIC: No hives or skin allergy. Is the patient limited Kinyarwanda proficient: No *Physical Exam - Vital Signs Last Vital Signs Temp Pulse Resp BP Pulse Ox 97.7 F 64 18 125/74 99 11/20/17 11:54 11/20/17 11:54 11/20/17 11:54 11/20/17 11:54 11/20/17 11:54 - Physical Exam Comments: 11/20/17 13:32 GENERAL: Well developed, well nourished. Awake and alert. No acute distress. HEENT: Normocephalic, atraumatic. Hearing grossly normal. Moist mucous membranes. PERRLA, EOMI. No conjunctival pallor. Sclera are non-icteric. NECK: Supple. Full ROM. No JVD. Carotid pulses 2+ and symmetric, without bruits. CARDIOVASCULAR: Regular rate and rhythm. No murmurs, rubs, or gallops. PULMONARY: No evidence of respiratory distress. Lungs clear to auscultation bilaterally. No wheezing, rales or rhonchi. ABDOMINAL: Soft. Non-tender. Non-distended. No rebound or guarding. GENITOURINARY: No CVA tenderness bilaterally. MUSCULOSKELETAL: Normal range of motion at all joints. No bony deformities or tenderness. EXTREMITIES: No cyanosis. No clubbing. No edema. No calf tenderness. SKIN: Warm and dry. Normal capillary refill. No rashes. No jaundice. NEUROLOGICAL: Alert, awake, appropriate. Cranial nerves 2-12 intact. Normal speech. Gait is normal without ataxia. PSYCHIATRIC: Cooperative. Good eye contact. Appropriate mood and affect. Heart Score/ECG Review #1 ECG reviewed & interpreted by me at: 13:14 General ECG Interpretation: Sinus Rhythm, Normal Rate, Normal Intervals, No acute ischemic changes Compared to previous ECG there are: Previous ECG unavail Medical Decision Making - Medical Decision Making 11/20/17 13:34 The patient is a 37M with a PMH of asthma and migraines who presents from his PCP's office for an abnormal EKG. On review of the EKG, it looks normal sinus to myself and my attending. I have paged the PCP to discuss the patient with her. EKG in our facility is NSR. Pending call back from PCP. 11/20/17 14:24 I have discussed the patient's care with his PCP who is concerned for multiple chronic issues but nothing acute. Will d/c the patient with f/u with cardiology. The patient has remained stable in our ER. No evidence of palpitations on EKG and his symptoms have not changed since his stay. *DC/Admit/Observation/Transfer Diagnosis at time of Disposition: Atypical chest pain - Discharge Dispostion Disposition: HOME Condition at time of disposition: Stable Admit: No - Referrals Referrals: Christi Levi MD [Primary Care Provider] - Alfonso Browning MD [Staff Physician] - - Patient Instructions Printed Discharge Instructions: DI for Atypical Chest Pain Additional Instructions: Please return to the ER if symptoms persist, worsen, or new symptoms arise. Please follow up with your primary care physician in 2-3 days. Please call the neuropsychologist, Dr. Browning, for a follow up as soon as he has availability. Please return to the ER if you have any signs or symptoms of chest pain, shortness of breath, uncontrollable fever, chills, nausea, vomiting, numbness, tingling, or weakness in any part of your body, changes in vision, or slurred speech. - Post Discharge Activity
--- NOTE | 2017-11-20 16:05 | EKG ---
Test Reason : Blood Pressure : / mmHG Vent. Rate : 063 BPM Atrial Rate : 063 BPM P-R Int : 172 ms QRS Dur : 088 ms QT Int : 366 ms P-R-T Axes : 046 -26 014 degrees QTc Int : 374 ms NORMAL SINUS RHYTHM NORMAL ECG NO PREVIOUS ECGS AVAILABLE Confirmed by ERNESTINE PIERRE MD ([id number]) on 11/20/2017 4:04:57 PM Referred By: Confirmed By:ERNESTINE PIERRE MD
== END 2017-11-20 14:56 | disposition home or self-care (01) ==
LOC: JER 11:46
DX: R07.89 Other chest pain (principal); G43.909 Migraine, unspecified, not intractable, without status migrainosus; I10 Essential (primary) hypertension; F17.210 Nicotine dependence, cigarettes, uncomplicated
CPT/HCPCS: 93005; 93010; 99283-25

== ENCOUNTER 2019-12-12 13:32 | Emergency (ER) | payer OTHER ==
[2019-12-12 13:49] VITALS: BP 142/79; PULSE 70; TEMP 98.2; BMI 21.9
[2019-12-12] MEDS ORDERED: ACETAMINOPHEN 325 MG TABLET (FP) PO ONE (14:04)
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
[2019-12-12] MEDS ORDERED: ACETAMINOPHEN 325 MG TABLET (FP) ONE (14:06)
== END 2019-12-12 15:05 | disposition home or self-care (01) ==
LOC: JERFT 13:32
DX: S43.402A Unspecified sprain of left shoulder joint, initial encounter (principal); V13.4XXA Pedal cycle driver injured in collision with car, pick-up truck or van in traffic accident, initial encounter; Y92.414 Local residential or business street as the place of occurrence of the external cause; Y93.55 Activity, bike riding; Y99.8 Other external cause status
CPT/HCPCS: 73030-TC-LT-FY; 99283-25

== ENCOUNTER 2022-11-21 18:51 | Emergency (ER) | payer OTHER ==
[2022-11-21 18:59] VITALS: BP 130/70; PULSE 70; RESP 18; TEMP 98.4; BMI 23.5
== END 2022-11-21 21:22 | disposition home or self-care (01) ==
LOC: JER 18:51
PROC: 0HQGXZZ Repair Left Hand Skin, External Approach (ICD-10-PCS; principal; 2022-11-21)
DX: S61.213A Laceration without foreign body of left middle finger without damage to nail, initial encounter (principal); W26.8XXA Contact with other sharp object(s), not elsewhere classified, initial encounter
CPT/HCPCS: 73130-TC-LT-FY; 99283-25

== ENCOUNTER 2022-12-06 18:36 | Emergency (ER) | payer OTHER ==
[2022-12-06 18:45] VITALS: BP 130/77; PULSE 78; RESP 18; TEMP 97.8; BMI 25.0
[2022-12-06] MEDS ORDERED: IBUPROFEN 600 MG TABLET (FP) PO ONE ×2 (19:00→19:11)
[2022-12-06] MEDS ORDERED: CEPHALEXIN MONOHYDRATE 500 MG CAPSULE (UD) PO ONE (19:00)
[2022-12-06] MEDS ORDERED: CEPHALEXIN MONOHYDRATE 500 MG CAPSULE (UD) ONE (19:11)
== END 2022-12-06 19:15 | disposition home or self-care (01) ==
LOC: JERFT 18:36
DX: S61.213A Laceration without foreign body of left middle finger without damage to nail, initial encounter (principal); L08.89 Other specified local infections of the skin and subcutaneous tissue; Y99.9 Unspecified external cause status; Z48.02 Encounter for removal of sutures
CPT/HCPCS: 99283-25

== ENCOUNTER 2022-12-17 00:06 | Emergency (ER) | payer OTHER ==
[2022-12-17 00:48] VITALS: BP 145/90; PULSE 78; RESP 16; TEMP 97.6; BMI 25.8
[2022-12-17 01:10] LABS: BASO % 1.1 % (0-2.0); EOS % 2.3 % (0-4.5); HEMATOCRIT 41.7 % (35.4-49); HEMOGLOBIN 14.7 GM/dL (11.7-16.9); LYMPH % 26.6 % (8-40); MCH 32.7 pg (25.7-33.7); MCHC 35.2 g/dl (32.0-35.9); MEAN CELL VOLUME 92.8 fl (80-96); MEAN PLT VOLUME 6.6 fl (7.5-11.1); MONO % 8.4 % (3.8-10.2); NEUT % 61.6 % (42.8-82.8); PLATELET COUNT 256 10^3/uL (134-434); RBC 4.49 M/mm3 (4.00-5.60); RDW 13.4 % (11.9-15.9); WHITE BLOOD COUNT 9.7 K/mm3 (4.0-10.0)
[2022-12-17 01:33] LABS: CALCIUM 8.6 mg/dL (8.5-10.1)
[2022-12-17 01:34] LABS: ALBUMIN 3.6 g/dl (3.4-5.0); BLOOD UREA NITROGEN 11.9 mg/dL (7-18)
[2022-12-17 01:37] LABS: CREATININE 0.9 mg/dL (0.55-1.3)
[2022-12-17 01:39] LABS: BILIRUBIN,TOTAL 0.3 mg/dL (0.2-1)
[2022-12-17] MEDS ORDERED: ACETAMINOPHEN 1000 MG/100 ML BAG IVPB ONE (01:51)
[2022-12-17] MEDS ORDERED: ACETAMINOPHEN INJECTION 100 ML IVPB ONE (02:18)
== END 2022-12-17 04:15 | disposition home or self-care (01) ==
LOC: JER 00:06
PROC: 3E033NZ Introduction of Analgesics, Hypnotics, Sedatives into Peripheral Vein, Percutaneous Approach (ICD-10-PCS; principal; 2022-12-17)
DX: J18.9 Pneumonia, unspecified organism (principal); R07.9 Chest pain, unspecified; Z20.822 Contact with and (suspected) exposure to COVID-19
CPT/HCPCS: 0241U-QW; 36415; 71046-TC-FY; 80053; 83880; 84484; 85025; 93005; 93010; 99285-25

== ENCOUNTER 2023-09-25 17:20 | Emergency (ER) | payer OTHER ==
[2023-09-25 17:25] VITALS: BP 108/69; PULSE 70; RESP 19; TEMP 97.9; BMI 23.5
[2023-09-25] MEDS ORDERED: KETOROLAC TROMETHAMINE 30 MG/1 ML VIAL IM ONE (18:29)
[2023-09-25] MEDS ORDERED: KETOROLAC TROMETHAMINE 30 MG/1 ML VIAL ONE (18:48)
== END 2023-09-25 20:13 | disposition home or self-care (01) ==
LOC: JER 17:20 → JERFT 17:20
PROC: 3E0233Z Introduction of Anti-inflammatory into Muscle, Percutaneous Approach (ICD-10-PCS; principal; 2023-09-25)
DX: M79.641 Pain in right hand (principal)
CPT/HCPCS: 73030-TC-RT-FY; 73060-TC-RT-FY; 73070-TC-RT-FY; 73090-TC-RT-FY; 73130-TC-RT-FY; 99284-25